=== PATIENT | male | born 1960 | race Caucasian/White ===

== ENCOUNTER 2016-07-18 08:44 | Inpatient (IN) | payer OTHER ==
[2016-07-18] VITALS (10 sets, daily range): BP systolic 92–137; BP diastolic 56–77
[~2016-07-18] VITALS: Ht 182.9 cm; Wt 83.9 kg
[2016-07-18] MEDS ORDERED: FLUO20CA16 PO (08:58)
[2016-07-18] MEDS ORDERED: IV NORMAL SALINE 1000ML BAG 1,000 ML IV SCH (09:08)
[2016-07-18] MEDS ORDERED: IOHEXOL 240 MG/ML 50ML VIAL. PO ONE (09:15)
[2016-07-18] MEDS ORDERED: IOHEXOL 300 MG/ML 75 ML VIAL IV ONE (09:15)
--- NOTE | 2016-07-18 09:29 | PHYS DOC ---
Past Medical History Past Medical History: Hypertension Past Surgical History: No Surgical History Alcohol Use: None Drug Use: None Adult General Chief Complaint Chief Complaint: ABDOMINAL PAIN HPI HPI Patient is a 55 year old male who complains of right-sided abdominal pain going on for 4 or 5 days. Patient says when it started about 4 or 5 days ago, it felt like a gas pain, he felt bloated. He was passing gas which would briefly make it feel a little better. He has had regular bowel movements during this time, no blood or mucus. He does not feel constipated. His pain has been only on the right side of his abdomen for about the last day. It's poorly described, "it's just there". It did keep him up off and on last night. His appetite during this time has been okay. He's had no vomiting. Patient has no history of abdominal surgery. No history of diverticulitis, Crohn 's, etc. He has not had a colonoscopy. No family history of inflammatory bowel disease. PCP Dr. kennedy. He takes medication daily for blood pressure, cannot recall what it is, and also takes a low dose of Prozac every morning. Review of Systems Review of Systems Constitutional: Denies fever or chills [] Eyes: Denies change in visual acuity, redness, or eye pain [] HENT: Denies nasal congestion or sore throat [] Respiratory: Denies cough or shortness of breath [] Cardiovascular: Denies chest pain GI: As in history of present illness : Denies dysuria or hematuria [] Musculoskeletal: Denies back pain or joint pain [] Integument: Denies rash or skin lesions [] Neurologic: Denies headache, focal weakness or sensory changes [] Current Medications Current Medications Current Medications Medications (Trade) Dose Ordered Sig/Daniel Start Time Stop Time Status Last Admin Dose Admin Fentanyl Citrate (Fentanyl 2ml Vial) 50 mcg PRN Q15MIN PRN 07/18/16 09:30 07/19/16 09:29 07/18/16 12:08 50 MCG Info (Do NOT chart on this entry -- for MONITORING) 1 each PRN DAILY PRN 07/18/16 09:30 07/20/16 09:29 Iohexol (Omnipaque 240 Mg/ml) 30 ml 1X ONCE 07/18/16 09:15 07/18/16 09:18 DC Iohexol (Omnipaque 300 Mg/ml) 75 ml 1X ONCE 07/18/16 09:15 07/18/16 09:18 DC 07/18/16 10:34 75 ML Sodium Chloride (Iv Sodium Chloride 0.9% 1000ml Bag) 1,000 ml @ 1,000 mls/hr Q1H 07/18/16 09:08 07/18/16 10:07 DC 07/18/16 09:26 1,000 MLS/HR Allergies Allergies Allergies Coded Allergies Type Severity Reaction Last Updated Verified No Known Drug Allergies 07/18/16 No Physical Exam Physical Exam Constitutional: Well developed, well nourished, no acute distress, non-toxic appearance. Alert, mentating normally. Heart rate 102 HENT: Normocephalic, atraumatic, bilateral external ears normal, nose normal. [ ] Eyes: conjunctiva normal, no discharge. [] Neck: Normal range of motion, no stridor. [] Cardiovascular:Heart rate regular rhythm, no murmur [] Lungs & Thorax: Bilateral breath sounds clear to auscultation [] Abdomen: Bowel sounds quiet, soft, nondistended, no bruit, no masses, no pulsatile masses. No right upper quadrant tenderness. Negative Estrada's. Liver not palpable. Right side of the abdomen is tender to the right of the umbilicus and lower. Moderate tenderness. No significant guarding. Skin: Warm, dry, no erythema, no rash. [] Extremities: No tenderness, no cyanosis, no clubbing, ROM intact, no edema. [] Neurologic: Alert and oriented X 3, normal motor function, normal sensory function, no focal deficits noted. [] Current Patient Data Vital Signs Vital Signs Date Time Temp Pulse Resp B/P Pulse Ox O2 Delivery O2 Flow Rate FiO2 07/18/16 11:29 88 18 113/71 96 Room Air 07/18/16 08:58 100.6 100.6 Lab Values Laboratory Tests Test 07/18/16 08:52 07/18/16 09:00 Urine Collection Type Unknown Urine Color Radha Urine Clarity Clear Urine pH 8.0 Urine Specific [place] 1.025 Urine Protein 100mg/dL (NEG-TRACE) Urine Glucose (UA) Negativemg/dL (NEG) Urine Ketones (Stick) Negativemg/dL (NEG) Urine Blood Large (NEG) Urine Nitrite Negative (NEG) Urine Bilirubin Small (NEG) Urine Urobilinogen Dipstick 1.0mg/dL (0.2 mg/dL) Urine Leukocyte Esterase Small (NEG) Urine RBC 11-20/HPF (0-2) Urine WBC Occ/HPF (0-4) Urine Bacteria 0/HPF (0-FEW) White Blood Count 12.0x10^3/uL (4.0-11.0) H Red Blood Count 4.79x10^6/uL (4.30-5.70) Hemoglobin 14.4g/dL (13.0-17.5) Hematocrit 42.7% (39.0-53.0) Mean Corpuscular Volume 89fL (79-100) Mean Corpuscular Hemoglobin 30pg (25-35) Mean Corpuscular Hemoglobin Concent 34g/dL (31-37) Red Cell Distribution Width 12.9% (11.5-14.5) Platelet Count 173x10^3/uL (140-400) Neutrophils (%) (Auto) 87% (31-73) H Lymphocytes (%) (Auto) 5% (24-48) L Monocytes (%) (Auto) 8% (0-9) Eosinophils (%) (Auto) 0% (0-3) Basophils (%) (Auto) 0% (0-3) Neutrophils # (Auto) 10.4x10^3uL (1.8-7.7) H Lymphocytes # (Auto) 0.6x10^3/uL (1.0-4.8) L Monocytes # (Auto) 1.0x10^3/uL (0.0-1.1) Eosinophils # (Auto) 0.0x10^3/uL (0.0-0.7) Basophils # (Auto) 0.0x10^3/uL (0.0-0.2) Segmented Neutrophils % 87% (35-66) H Band Neutrophils % 5% (0-9) Lymphocytes % 6% (24-48) L Monocytes % 2% (0-10) Platelet Estimate Adequate (ADEQUATE) Sodium Level 136mmol/L (136-145) Potassium Level 4.1mmol/L (3.5-5.1) Chloride Level 100mmol/L (98-107) Carbon Dioxide Level 26mmol/L (21-32) Anion Gap 10 (6-14) Blood Urea Nitrogen 17mg/dL (8-26) Creatinine 1.2mg/dL (0.7-1.3) Estimated GFR (Cockcroft-Gault) 62.4 BUN/Creatinine Ratio 14 (6-20) Glucose Level 132mg/dL (70-99) H Calcium Level 8.9mg/dL (8.5-10.1) Total Bilirubin 0.9mg/dL (0.2-1.0) Aspartate Amino Transferase (AST) 16U/L (15-37) Alanine Aminotransferase (ALT) 24U/L (16-63) Alkaline Phosphatase 52U/L (46-116) Total Protein 7.6g/dL (6.4-8.2) Albumin 3.8g/dL (3.4-5.0) Albumin/Globulin Ratio 1.0 (1.0-1.7) Lipase 96U/L (73-393) Laboratory Tests 07/18/16 09:00 Laboratory Tests 07/18/16 09:00 EKG EKG [] Radiology/Procedures Radiology/Procedures [] Course & Med Decision Making Course & Med Decision Making Pertinent Labs and Imaging studies reviewed. (See chart for details) 55-year-old male with no history of GI or abdominal problems presents with 4-5 day history of abdominal pain which was more generalized and has localized to the right side, slightly higher than the right lower quadrant. I advised him we will give him some pain medications, IV fluids, check labs and a CT scan and he is agreeable to that plan. Microscopic hematuria. Urinalysis shows RBCs and positive for blood. CT scan read by the radiologist positive for acute appendicitis. I discussed the case with Dr. Macdonald, general surgery, who will see the patient and plan to take him to the operating room. We discussed IV antibiotics and I wrote for a dose of Zosyn. I discussed the case with Dr. Alex Rob, taking calls for Dr. Alaniz, and he will admit the patient. I wrote bridge orders. I discussed the diagnosis and plan with the patient and his and the patient understands and agrees. [] Dragon Disclaimer Dragon Disclaimer This electronic medical record was generated, in whole or in part, using a voice recognition dictation system. Departure Departure Impression: Primary Impression: Acute appendicitis Disposition: 09 ADMITTED INPATIENT Admitting Physician: Alex Rob Condition: STABLE Referrals: NATHAN ALANIZ MD (PCP) ERNST IVAN MD Jul 18, 2016 09:29
[2016-07-18 09:30] LABS: CALCIUM 8.9 mg/dL (8.5-10.1); CREATININE 1.2 mg/dL (0.7-1.3); GFR 62.4; POTASSIUM 4.1 mmol/L (3.5-5.1)
[2016-07-18] MEDS ORDERED: CONTRAST GIVEN MC PRN (09:30)
[2016-07-18 09:36] LABS: ALBUMIN 3.8 g/dL (3.4-5.0); TOTAL BILIRUBIN 0.9 mg/dL (0.2-1.0); TOTAL PROTEIN 7.6 g/dL (6.4-8.2)
[2016-07-18 09:40] LABS: BASO % 0 % (0-3); EOS % 0 % (0-3); HEMATOCRIT 42.7 % (39.0-53.0); HEMOGLOBIN 14.4 g/dL (13.0-17.5); LYMPH # 0.6 x10^3/uL (1.0-4.8); LYMPH % 5 % (24-48); MEAN CORPUSCULAR HEMOGLOBIN 30 pg (25-35); MEAN CORPUSCULAR HGB CONC 34 g/dL (31-37); MEAN CORPUSCULAR VOLUME 89 fL (79-100); MONO % 8 % (0-9); NEUT % 87 % (31-73); PLATELET COUNT 173 x10^3/uL (140-400); RED BLOOD COUNT 4.79 x10^6/uL (4.30-5.70); RED CELL DISTRIBUTION WIDTH 12.9 % (11.5-14.5)
[2016-07-18] MEDS: FENTANYL PF 100 MCG/2 ML VIAL. IV PRN ×5 (09:46→13:42)
[2016-07-18 09:54] LABS: BILIRUBIN,URINE SMALL (NEG); GLUCOSE,URINE NEGATIVE (NEG); NITRITE,URINE NEGATIVE (NEG); PROTEIN,URINE 100 mg/dL (NEG-TRACE)
[2016-07-18 10:11] LABS: BACTERIA,URINE 0 /HPF (0-FEW); WBC,URINE OCC /HPF (0-4)
--- NOTE | 2016-07-18 11:31 | RAD ---
Indication right-sided abdominal pain. Axial images through the abdomen and pelvis were obtained. Both oral and IV contrast were administered. 75 cc of Omnipaque 300 was administered intravenously. No prior imaging of the abdomen or pelvis is available. The lung bases are clear. The liver and spleen appear unremarkable. The gallbladder appears grossly normal. The pancreas adrenal glands and kidneys appear normal. A mass inflammatory process or acute finding in the abdomen is not seen. The appendix is enlarged. There is periappendiceal stranding. Findings are consistent with appendicitis. No eva rupture or abscess is seen. There is some thickening of the terminal ileum which is probably secondary to the inflammatory changes in the appendix. No additional finding is seen in the pelvis IMPRESSION: Inflammatory changes in the right lower quadrant compatible with appendicitis. Thickening in the adjacent terminal ileum is probably secondary to the inflammatory changes in the appendix PQRS Compliance Statement: One or more of the following individualized dose reduction techniques were utilized for this examination: 1. Automated exposure control 2. Adjustment of the mA and/or kV according to patient size 3. Use of iterative reconstruction technique
[2016-07-18] MEDS ORDERED: PIPERACILLIN/TAZOBACTAM 3.375 GM in IV NORMAL SALINE 50ML 50 ML IV ONE (12:00)
[2016-07-18 12:13] LABS: PLT ESTIMATE ADEQUATE (ADEQUATE)
--- NOTE | 2016-07-18 13:06 | ACF ---
Admission Forms Criteria ABDOMINAL PAIN Clinical Indications for Admission to Inpatient Care (Place 'X' for any and all applicable criteria): Admission is indicated for ANY ONE of the following(1)(2)(3)(4)(5): [X]I. Inpatient admission required rather than observation care (Also use Abdominal Pain: Observation Care, as appropriate) because of ANY ONE of the following: [ ]a) Severe pain requiring acute inpatient management [X]b) Identification of etiology/finding that requires inpatient care (eg, aortic dissection, free air) [ ]c) Absent bowel sounds with complete ileus(6) [ ]d) Suspected toxic megacolon [ ]e) Severe electrolyte abnormalities requiring inpatient care [ ]f) High fever or infection requiring inpatient admission as indicated by ANY ONE of following(7)(8): [ ] i) Appropriate outpatient or observational care antimicrobial treatment unavailable, not effective, or not feasible [ ] ii) Documented bacteremia [ ] iii) Temperature > 104.9 degrees F (oral) [ ] iv) T >103.1 F (oral) or < 96.8 F(rectal) that does not respond to all emergency treatment measures [ ]g) Signs of intestinal obstruction [B] [ ]h) Hemodynamic instability [ ]i) IV fluid to replace significant ongoing losses (greater than 3 L/m2 per day) (12)(13) [ ]j) Percutaneous or open drainage (eg, abscess, biliary tract ) procedures [ ]k) Parenteral nutrition regimen that must be implemented on inpatient basis [ ]l) Other condition,treatment or monitoring requiring inpatient admission. [ ]II. Peritoneal signs present [ ]III. Surgery needed that cannot be performed on an ambulatory basis. [ ]IV. Evaluation requires patient to not eat or drink for extended period ( eg, more than 24 hours). [ ]V. Contraindications and/or Inappropriate clinical situations for Observational Care in patients with abdominal pain, when ANY ONE of the following is required: [ ]a) Thorough evaluation is required to prevent catastrophic events due to delays in diagnosing (e.g.Mesenteric ischemia) 1,3 [ ]b) Patient with severe pathology or with chronic symptoms unlikely to improve in the ED stay (3) [ ]. General contraindications and/or Inappropriate clinical situations for Observational Care in patients with abdominal pain, when ANY ONE of the following is required: [ ]a) Prediction of prolongation of LOS based on ANY ONE of the following may be considered as a contraindication for observational care 2, 3, 4, 5, 6, 7, 8, 9, 10, 11 [ ]i) Age > 65 yrs. [ ]ii) Patient arriving by ambulance [ ]iii) Patient with high acuity [ ]iv) Patient requiring vital sign monitoring [ ]v) Patient on IV medication [ ]b) Systolic blood pressures 180mmHg 3,12 [ ]c) Patient with altered mental status including delirium and other alteration of consciousness, (3) [ ]d) Patient whose discharge disposition will be to a custodial home or rehabilitation home should not be managed in Emergency Department Observation Unit. CMS rule requires 3 days hospital stay before such placement.3,13 [ ]e) Patient with failure to thrive due to broad array of etiologies 3,16,17 [ ]f) Inability to ambulate 3,14 Extended stay beyond goal length of stay may be needed for(2)(3): [ ]a) Persistent abdominal pain with suspected intra-abdominal process [ ]b) Diagnosed condition requiring continued stay (e.g., pancreatitis, complicated diverticulitis) [ ]c) Surgery (e.g., colectomy) The original [facility] content created by [employer] has been revised. The portions of the content which have been revised are identified through the use of italic text or in bold, and [facility] has neither reviewed nor approved the modified material.All other unmodified content is copyright [employer]. Please see references footnoted in the original [facility] edition 2016 Admission Criteria Met?: Yes CECILIA VELASQUEZ Jul 18, 2016 13:06
--- NOTE | 2016-07-18 13:15 | PDOC2 ---
CONSULT Date of Consult Date of Consult DATE: 07/18/16 TIME: 13:14 Current Problem List Problem List Problems Medical Problems: (1) Acute appendicitis Status: Acute Current Medications Current Medications Current Medications Sodium Chloride (Iv Sodium Chloride 0.9% 1000ml Bag) 1,000 ml @ 1,000 mls/hr Q1H IV Last administered on 07/18/16 09:26; Start 07/18/16 at 09:08; Stop at 10:07; Status DC Iohexol (Omnipaque 240 Mg/ml) 30 ml 1X ONCE PO ; Start 07/18/16 at 09:15; Stop 07/18/16 at 09:18; Status DC Iohexol (Omnipaque 300 Mg/ml) 75 ml 1X ONCE IV Last administered on 07/18/16 10:34; Start 07/18/16 at 09:15; Stop 07/18/16 at 09:18; Status DC Info (Do NOT chart on this entry -- for MONITORING) 1 each PRN DAILY PRN MC SEE COMMENTS; Start 07/18/16 at 09:30; Stop 07/20/16 at 09:29 Fentanyl Citrate 50 mcg 50 mcg PRN Q15MIN PRN IV PAIN GREATER THAN 3/10 Last administered on 07/18/16 12:08; Start 07/18/16 at 09:30; Stop 07/19/16 at 09:29 Piperacillin Sod/ Tazobactam Sod/ Sodium Chloride (Zosyn/Iv Sodium Chloride 0.9 % 50ml) 50 ml @ 100 mls/hr 1X ONCE IV Last administered on 07/18/16 12:14; Start 07/18/16 at 12:00; Stop 07/18/16 at 12:29; Status DC Active Scripts Active Reported Prozac (Fluoxetine Hcl) 20 Mg Capsule 1 Cap PO [id number] Allergies Allergies: Coded Allergies: No Known Drug Allergies (Unverified , 07/18/16) Vitals VITALS Vital Signs Date Time Temp Pulse Resp B/P Pulse Ox O2 Delivery O2 Flow Rate FiO2 07/18/16 12:34 101.7 101.7 07/18/16 12:12 85 18 113/71 99 Room Air Labs Labs Laboratory Tests Test 07/18/16 08:52 07/18/16 09:00 Urine Collection Type Unknown Urine Color Radha Urine Clarity Clear Urine pH 8.0 Urine Specific [place] 1.025 Urine Protein 100mg/dL (NEG-TRACE) Urine Glucose (UA) Negativemg/dL (NEG) Urine Ketones (Stick) Negativemg/dL (NEG) Urine Blood Large (NEG) Urine Nitrite Negative (NEG) Urine Bilirubin Small (NEG) Urine Urobilinogen Dipstick 1.0mg/dL (0.2 mg/dL) Urine Leukocyte Esterase Small (NEG) Urine RBC 11-20/HPF (0-2) Urine WBC Occ/HPF (0-4) Urine Bacteria 0/HPF (0-FEW) White Blood Count 12.0x10^3/uL (4.0-11.0) Red Blood Count 4.79x10^6/uL (4.30-5.70) Hemoglobin 14.4g/dL (13.0-17.5) Hematocrit 42.7% (39.0-53.0) Mean Corpuscular Volume 89fL (79-100) Mean Corpuscular Hemoglobin 30pg (25-35) Mean Corpuscular Hemoglobin Concent 34g/dL (31-37) Red Cell Distribution Width 12.9% (11.5-14.5) Platelet Count 173x10^3/uL (140-400) Neutrophils (%) (Auto) 87% (31-73) Lymphocytes (%) (Auto) 5% (24-48) Monocytes (%) (Auto) 8% (0-9) Eosinophils (%) (Auto) 0% (0-3) Basophils (%) (Auto) 0% (0-3) Neutrophils # (Auto) 10.4x10^3uL (1.8-7.7) Lymphocytes # (Auto) 0.6x10^3/uL (1.0-4.8) Monocytes # (Auto) 1.0x10^3/uL (0.0-1.1) Eosinophils # (Auto) 0.0x10^3/uL (0.0-0.7) Basophils # (Auto) 0.0x10^3/uL (0.0-0.2) Segmented Neutrophils % 87% (35-66) Band Neutrophils % 5% (0-9) Lymphocytes % 6% (24-48) Monocytes % 2% (0-10) Platelet Estimate Adequate (ADEQUATE) Sodium Level 136mmol/L (136-145) Potassium Level 4.1mmol/L (3.5-5.1) Chloride Level 100mmol/L (98-107) Carbon Dioxide Level 26mmol/L (21-32) Anion Gap 10 (6-14) Blood Urea Nitrogen 17mg/dL (8-26) Creatinine 1.2mg/dL (0.7-1.3) Estimated GFR (Cockcroft-Gault) 62.4 BUN/Creatinine Ratio 14 (6-20) Glucose Level 132mg/dL (70-99) Calcium Level 8.9mg/dL (8.5-10.1) Total Bilirubin 0.9mg/dL (0.2-1.0) Aspartate Amino Transf (AST/SGOT) 16U/L (15-37) Alanine Aminotransferase (ALT/SGPT) 24U/L (16-63) Alkaline Phosphatase 52U/L (46-116) Total Protein 7.6g/dL (6.4-8.2) Albumin 3.8g/dL (3.4-5.0) Albumin/Globulin Ratio 1.0 (1.0-1.7) Lipase 96U/L (73-393) Laboratory Tests Test 07/18/16 08:52 07/18/16 09:00 Urine Collection Type Unknown Urine Color Radha Urine Clarity Clear Urine pH 8.0 Urine Specific [place] 1.025 Urine Protein 100mg/dL (NEG-TRACE) Urine Glucose (UA) Negativemg/dL (NEG) Urine Ketones (Stick) Negativemg/dL (NEG) Urine Blood Large (NEG) Urine Nitrite Negative (NEG) Urine Bilirubin Small (NEG) Urine Urobilinogen Dipstick 1.0mg/dL (0.2 mg/dL) Urine Leukocyte Esterase Small (NEG) Urine RBC 11-20/HPF (0-2) Urine WBC Occ/HPF (0-4) Urine Bacteria 0/HPF (0-FEW) White Blood Count 12.0x10^3/uL (4.0-11.0) Red Blood Count 4.79x10^6/uL (4.30-5.70) Hemoglobin 14.4g/dL (13.0-17.5) Hematocrit 42.7% (39.0-53.0) Mean Corpuscular Volume 89fL (79-100) Mean Corpuscular Hemoglobin 30pg (25-35) Mean Corpuscular Hemoglobin Concent 34g/dL (31-37) Red Cell Distribution Width 12.9% (11.5-14.5) Platelet Count 173x10^3/uL (140-400) Neutrophils (%) (Auto) 87% (31-73) Lymphocytes (%) (Auto) 5% (24-48) Monocytes (%) (Auto) 8% (0-9) Eosinophils (%) (Auto) 0% (0-3) Basophils (%) (Auto) 0% (0-3) Neutrophils # (Auto) 10.4x10^3uL (1.8-7.7) Lymphocytes # (Auto) 0.6x10^3/uL (1.0-4.8) Monocytes # (Auto) 1.0x10^3/uL (0.0-1.1) Eosinophils # (Auto) 0.0x10^3/uL (0.0-0.7) Basophils # (Auto) 0.0x10^3/uL (0.0-0.2) Segmented Neutrophils % 87% (35-66) Band Neutrophils % 5% (0-9) Lymphocytes % 6% (24-48) Monocytes % 2% (0-10) Platelet Estimate Adequate (ADEQUATE) Sodium Level 136mmol/L (136-145) Potassium Level 4.1mmol/L (3.5-5.1) Chloride Level 100mmol/L (98-107) Carbon Dioxide Level 26mmol/L (21-32) Anion Gap 10 (6-14) Blood Urea Nitrogen 17mg/dL (8-26) Creatinine 1.2mg/dL (0.7-1.3) Estimated GFR (Cockcroft-Gault) 62.4 BUN/Creatinine Ratio 14 (6-20) Glucose Level 132mg/dL (70-99) Calcium Level 8.9mg/dL (8.5-10.1) Total Bilirubin 0.9mg/dL (0.2-1.0) Aspartate Amino Transf (AST/SGOT) 16U/L (15-37) Alanine Aminotransferase (ALT/SGPT) 24U/L (16-63) Alkaline Phosphatase 52U/L (46-116) Total Protein 7.6g/dL (6.4-8.2) Albumin 3.8g/dL (3.4-5.0) Albumin/Globulin Ratio 1.0 (1.0-1.7) Lipase 96U/L (73-393) Assessment/Plan Assessment/Plan FND Wk # [id number] IMP: acute appendicitis Plan: l/s appendectomy R/B/A explained to pt and his . He will proceed Thanks for consult CORNELIA GONZALEZ MD Jul 18, 2016 13:15
[2016-07-18] MEDS ORDERED: METRONIDAZOLE 500mg PREMIX 100 ML IV PRN (13:30)
[2016-07-18] MEDS ORDERED: ACETAMINOPHEN INTRAVENOUS 100 ML IV ONE ×2 (13:31→13:45)
[2016-07-18] MEDS: IV RINGERS,LACTATED 1000ML 1,000 ML IV SCH ×2 (13:36→13:43)
[2016-07-18] MEDS ORDERED: LIDOCAINE 1% 1 ML SYRINGE. ID PRN (13:45)
[2016-07-18] MEDS ORDERED: FENTANYL PF 100 MCG/2 ML VIAL. IV PRN ×2 (13:45)
[2016-07-18] MEDS ORDERED: MORPHINE SULFATE 2 MG/ML DISP.SYRIN. IV PRN (13:45)
[2016-07-18] MEDS ORDERED: HYDROMORPHONE 2 MG/ML VIAL. IV PRN ×2 (13:45→15:45)
[2016-07-18] MEDS ORDERED: ONDANSETRON PF 4 MG/2 ML VIAL. IV PRN ×2 (13:45→15:45)
[2016-07-18] MEDS ORDERED: PROCHLORPERAZINE 10 MG/2 ML VIAL. IV PRN (13:45)
[2016-07-18] MEDS ORDERED: GLYCOPYRROLATE 1 MG/5 ML VIAL. ONE (13:56)
[2016-07-18] MEDS ORDERED: FENTANYL PF 100 MCG/2 ML VIAL. ONE (13:56)
[2016-07-18] MEDS ORDERED: MIDAZOLAM HCL 2 MG/2 ML VIAL. ONE (13:56)
[2016-07-18] MEDS ORDERED: NEOSTIGMINE METHYLSULFATE 5 MG/5 ML SYRINGE. ONE (13:56)
[2016-07-18] MEDS ORDERED: DESFLURANE > 120 MINUTES IH ONE (13:56)
[2016-07-18] MEDS ORDERED: PROPOFOL 20 ML IV ONE (13:57)
[2016-07-18] MEDS ORDERED: DEXAMETHASONE SOD PHOS 20 MG/5 ML VIAL. ONE (13:57)
[2016-07-18] MEDS ORDERED: LIDOCAINE 2% 100 MG/5 ML DISP.SYRIN. ONE (13:57)
[2016-07-18] MEDS ORDERED: ONDANSETRON PF 4 MG/2 ML VIAL. ONE (13:57)
[2016-07-18] MEDS ORDERED: SUCCINYLCHOLINE 200 MG/10 ML VIAL. ONE (13:57)
[2016-07-18] MEDS ORDERED: ROCURONIUM 100 MG/10 ML VIAL. ONE (13:57)
[2016-07-18] MEDS ORDERED: KETOROLAC 60 MG/2 ML INJ FOR OR. ONE (13:57)
[2016-07-18] MEDS ORDERED: BUPIVAC MPF-EPI 0.5%-1:200000 30 ML VIAL. ONE (14:14)
[2016-07-18] MEDS ORDERED: OXYCODONE/APAP 5/325 TABLET. PO PRN (15:45)
[2016-07-18] MEDS ORDERED: DIPHENHYDRAMINE HCL 25 MG CAPSULE PO PRN (15:45)
[2016-07-18] MEDS ORDERED: DIPHENHYDRAMINE 50 MG/ML VIAL IV PRN (15:45)
[2016-07-18] MEDS ORDERED: ACETAMINOPHEN 500 MG TABLET PO PRN (15:45)
[2016-07-18] MEDS ORDERED: 0.9 % SODIUM CHLORIDE 10 ML DISP.SYRIN. IV PRN (15:45)
--- NOTE | 2016-07-18 15:45 | PDOC ---
BRIEF OPERATIVE NOTE Date: Jul 18, 2016 Pre-Op Diagnosis acute appendicitis Post-Op Diagnosis same Procedure Performed l/s appendectomy Surgeon Torres Anesthesia Type: General Blood Loss 20cc IV Fluid 600cc Urine Output 225cc Specimens Obtained appendix Findings acute suppurative appendix Complications none Additional Remarks # [id number] CORNELIA GONZALEZ MD Jul 18, 2016 15:45
[2016-07-18] MEDS ORDERED: ENOXAPARIN 40 MG/0.4 ML SYRINGE. SQ SCH (16:00)
--- NOTE | 2016-07-18 16:16 | OP ---
DATE OF SURGERY: 07/18/2016 PREOPERATIVE DIAGNOSIS: Acute appendicitis. POSTOPERATIVE DIAGNOSIS: Acute appendicitis. PROCEDURE: Laparoscopic appendectomy. SURGEON: Ankush Gonzalez MD. ANESTHESIA: General endotracheal. ESTIMATED BLOOD LOSS: 20 mL. INTRAVENOUS FLUIDS: 600. URINE OUTPUT: 225. INDICATIONS: The patient is a 55-year-old who has not felt well for a week, got worse today, he came in and the CT is consistent with appendicitis. OPERATIVE FINDINGS: He had an acute suppurative appendicitis with possible perforation as a small appendicolith was identified. Visual inspection of the remainder of the abdomen failed to reveal obvious abnormalities. DESCRIPTION OF PROCEDURE: The patient was brought to the operating suite, given a general endotracheal anesthetic. Ajquez catheter placed to dependent drainage and the abdomen prepped and draped in usual sterile fashion. A supraumbilical incision was made and a 5 mm Visiport used to gain access into the abdominal cavity, taking care to avoid injury to abdominal contents. Pneumoperitoneum established. Camera inserted and inspection carried out with results as noted above. Under direct vision, the suprapubic and left lower quadrant ports were placed. The supraumbilical port was converted to 12 mm for instrumentation. The base of the appendix, which was viable was identified, encircled and an Endo-KATARZYNA stapler with a tissue load used to amputate the base of the appendix. A single medium large clip was used to augment the end of the staple line. We then set about freeing the inflamed gangrenous appendix in its entirety. This allowed transection of the mesoappendix with a vascular load of the Endo-KATARZYNA. Appendix placed in an EndoCatch bag. Again, medium large clips were used along the staple line of the mesoappendix to secure good hemostasis, which was present. Intra-abdominal pressure decreased to 6 cm of water. No bleeding from the appendiceal stump or from the mesoappendix was seen. A stab wound was made in the right flank and under direct vision, a 19-[place] round [place] drain was placed along the pericolic gutter into the tube pelvis for postoperative drainage. Drainage secured to the skin with a silk stitch. Table returned to level. Appendix delivered through the supraumbilical incision. Incision closed with an interrupted 0 Vicryl suture. Again, at 6 cm of water, no bleeding from the supraumbilical incision closure or from the left lower quadrant port site after its removal or from the drain site. Abdomen decompressed, camera slowly removed, no bleeding seen. Skin incisions closed with subcuticular 4-0 Monocryl. Steri-Strips and sterile dressings applied. Jaquez catheter removed. The patient was awakened from his anesthetic and taken to the recovery room in satisfactory condition. ANKUSH GONZALEZ MD DR: KAPIL/dodie JOB#: [id number] / [id number]
[2016-07-18] MEDS: POTASSIUM CL 20MEQ-0.45% NACL 1,000 ML IV SCH (17:43)
[2016-07-18] MEDS: PIPERACILLIN/TAZOBACTAM 3.375 GM in IV NORMAL SALINE 50ML 50 ML IV SCH ×2 (17:44→23:51)
[2016-07-18] MEDS: OXYCODONE/APAP 5/325 TABLET. PO PRN (19:30)
[2016-07-18] MEDS: ALPRAZOLAM 0.5 MG TABLET. PO PRN (19:33)
[2016-07-18] MEDS: DOCUSATE SODIUM 100 MG CAPSULE. PO SCH (21:46)
[2016-07-19 03:05] VITALS: BP 122/78
--- NOTE | 2016-07-19 04:29 | CONS ---
DATE OF CONSULTATION: 07/18/2016 HISTORY OF PRESENT ILLNESS: The patient is a 55-year-old who for the last week or so has had some right-sided abdominal pain. It got much worse yesterday. He presented to the ED where a CT scan is consistent with appendicitis. He is brought for appendectomy. PAST SURGICAL HISTORY: Not significant. PAST MEDICAL HISTORY: He has some hypertension, treated by his primary physician. ALLERGIES: No known drug allergies. ROUTINE MEDICATIONS: Low dose of Prozac and a blood pressure medication. FAMILY HISTORY: Noncontributory to this illness. SOCIAL HISTORY: He is a nonsmoker who does not use alcohol routinely. REVIEW OF SYSTEMS: GENERAL: Denies fevers or chills. HEENT: No recent congestion or sore throat. CARDIAC: No chest pain or palpitations. RESPIRATORY: No cough or wheezing. GASTROINTESTINAL: See history of present illness. GENITOURINARY: No increased frequency or dysuria. NEUROLOGIC: Denies headaches or visual changes. PHYSICAL EXAMINATION: SKIN: Reveals a well-developed, well-nourished male who is uncomfortable due to abdominal pain. He is alert and oriented. VITAL SIGNS: His temperature is 101.7, heart rate 85, blood pressure 113/71. HEENT: Normocephalic. EOMs intact. NECK: Supple, without carotid bruits. LUNGS: Clear. HEART: Regular rate and rhythm. ABDOMEN: The belly is soft. There is diffuse tenderness to palpation worst in the right hypochondriac location. GENITAL AND RECTAL: Deferred. EXTREMITIES: Showed no gross skeletal abnormalities. NEUROLOGIC: He is grossly intact. ADMISSION LABORATORY DATA: Shows a white count of 12,000, hemoglobin 14.4, chemistries are unremarkable, sugar of 132. Urinalysis shows a spec gravity of 1.025 with some red cells. CT scan shows inflammatory changes in the right lower quadrant consistent with appendicitis. IMPRESSION: 1. Right lower quadrant abdominal pain acute appendicitis. 2. Dehydration. PLAN: Laparoscopic appendectomy. I discussed the procedure with the patient and his , including risks of bleeding, infection, injury to the bowel, or bladder, possible need for drain postoperatively, and the fact that this may not be an acute appendicitis (i.e., mesenteric adenitis, gastroenteritis, inflammatory bowel disease). He understands and we will proceed. Thank you for asking me to see this gentleman and participate in his care. We will follow him with you during this hospitalization. CORNELIA GONZALEZ MD DR: KAPIL/dodie JOB#: [id number] / [id number]
[2016-07-19 04:48] LABS: BASO % 0 % (0-3); EOS % 0 % (0-3); HEMATOCRIT 35.9 % (39.0-53.0); LYMPH # 0.7 x10^3/uL (1.0-4.8); LYMPH % 5 % (24-48); MEAN CORPUSCULAR HEMOGLOBIN 30 pg (25-35); MEAN CORPUSCULAR HGB CONC 34 g/dL (31-37); MEAN CORPUSCULAR VOLUME 89 fL (79-100); MONO % 9 % (0-9); NEUT % 86 % (31-73); PLATELET COUNT 149 x10^3/uL (140-400); RED BLOOD COUNT 4.05 x10^6/uL (4.30-5.70); RED CELL DISTRIBUTION WIDTH 13.4 % (11.5-14.5); WHITE BLOOD COUNT 14.1 x10^3/uL (4.0-11.0)
[2016-07-19] MEDS: POTASSIUM CL 20MEQ-0.45% NACL 1,000 ML IV SCH (05:04)
[2016-07-19] MEDS ORDERED: ENOXAPARIN 40 MG/0.4 ML SYRINGE. SQ SCH ×2 (05:26→16:00)
[2016-07-19] MEDS ORDERED: HYDROMORPHONE 2 MG/ML VIAL. IV PRN (05:26)
[2016-07-19] MEDS ORDERED: ONDANSETRON PF 4 MG/2 ML VIAL. IV PRN (05:26)
[2016-07-19] MEDS: OXYCODONE/APAP 5/325 TABLET. PO PRN (06:23)
[2016-07-19] MEDS: PIPERACILLIN/TAZOBACTAM 3.375 GM in IV NORMAL SALINE 50ML 50 ML IV SCH (06:24)
[2016-07-19] MEDS: ALPRAZOLAM 0.5 MG TABLET. PO PRN (06:30)
[2016-07-19 07:00] VITALS: BP 89/61
[2016-07-19] MEDS ORDERED: FLUOXETINE HCL 10 MG CAPSULE PO SCH (08:00)
--- NOTE | 2016-07-19 09:05 | PDOC ---
Provider Note Provider Note [id number] JERALD BRANNON MD Jul 19, 2016 09:05
[2016-07-19] MEDS: DOCUSATE SODIUM 100 MG CAPSULE. PO SCH (09:07)
--- NOTE | 2016-07-19 09:50 | HP ---
ADMIT DATE: 07/18/2016 CHIEF COMPLAINT: Appendicitis. HISTORY OF PRESENT ILLNESS: A 55-year-old white male patient of Dr. Dykes who has a history of mild hypertension and OCD. He takes Prozac and lisinopril. He came in with increasing lower quadrant abdominal pain, nausea and vomiting and was found to have acute appendicitis. Dr. Macdonald performed appendectomy for acute suppurative appendix and he is on IV Zosyn at this time with the drain in place. PAST HISTORY: No prior surgery. No known other medical problems. MEDICATIONS: No other medications. ALLERGIES: No known allergies. SOCIAL HISTORY: , nonsmoker, nondrinker, employed. FAMILY HISTORY: Unremarkable. REVIEW OF SYSTEMS: No other complaints. OBJECTIVE: ENT: All within normal limits. NECK: No masses, nodes or bruits. LUNGS: Clear. CARDIOVASCULAR: Regular rate. No tachycardia or murmur. ABDOMEN: Multiple dressings from port sites. Relatively flat and soft. Minimal bowel sounds. Drain in the right mid abdomen. EXTREMITIES: All within normal limits. Good pedal and radial pulses. NEUROLOGIC: Anxious, oriented, nonfocal. Gait not tested. Cranial nerves, motor and sensory appears to be intact. ASSESSMENT: Status post appendicitis and appendectomy. He has a history of obsessive-compulsive disorder, anxiety disorder and hypertension. PLAN: Continue Prozac and p.r.n. Xanax. Antibiotics per Dr. Macdonald. JERALD BRANNON MD DR: COREY/dodie JOB#: [id number] / [id number]
[2016-07-19 11:00] VITALS: BP 108/65
--- NOTE | 2016-07-19 11:57 | PDOC ---
SURGICAL PROGRESS NOTE Subjective anxious to go home no complaints other than pain at the drain site Vital Signs Vital Signs Date Time Temp Pulse Resp B/P Pulse Ox O2 Delivery O2 Flow Rate FiO2 07/19/16 11:00 97.9 62 18 108/65 98 Room Air 97.9 07/18/16 16:17 2 I&O Intake and Output 07/19/16 07:00 Intake Total 2310 ml Output Total 235 ml Balance 2075 ml Intake Oral 360 ml IV Total 1950 ml Output Urine Total 225 ml Estimated Blood Loss 10 ml PATIENT HAS A FRANK: No General: Alert, Oriented X3, Cooperative, No acute distress Abdomen: Soft, Other (small amount of serosanguineous output) Labs Laboratory Tests Test 07/18/16 08:52 07/18/16 09:00 07/19/16 04:30 Urine Collection Type Unknown Urine Color Radha Urine Clarity Clear Urine pH 8.0 Urine Specific [place] 1.025 Urine Protein 100mg/dL (NEG-TRACE) Urine Glucose (UA) Negativemg/dL (NEG) Urine Ketones (Stick) Negativemg/dL (NEG) Urine Blood Large (NEG) Urine Nitrite Negative (NEG) Urine Bilirubin Small (NEG) Urine Urobilinogen Dipstick 1.0mg/dL (0.2 mg/dL) Urine Leukocyte Esterase Small (NEG) Urine RBC 11-20/HPF (0-2) Urine WBC Occ/HPF (0-4) Urine Bacteria 0/HPF (0-FEW) White Blood Count 12.0x10^3/uL (4.0-11.0) 14.1x10^3/uL (4.0-11.0) Red Blood Count 4.79x10^6/uL (4.30-5.70) 4.05x10^6/uL (4.30-5.70) Hemoglobin 14.4g/dL (13.0-17.5) 12.0g/dL (13.0-17.5) Hematocrit 42.7% (39.0-53.0) 35.9% (39.0-53.0) Mean Corpuscular Volume 89fL (79-100) 89fL (79-100) Mean Corpuscular Hemoglobin 30pg (25-35) 30pg (25-35) Mean Corpuscular Hemoglobin Concent 34g/dL (31-37) 34g/dL (31-37) Red Cell Distribution Width 12.9% (11.5-14.5) 13.4% (11.5-14.5) Platelet Count 173x10^3/uL (140-400) 149x10^3/uL (140-400) Neutrophils (%) (Auto) 87% (31-73) 86% (31-73) Lymphocytes (%) (Auto) 5% (24-48) 5% (24-48) Monocytes (%) (Auto) 8% (0-9) 9% (0-9) Eosinophils (%) (Auto) 0% (0-3) 0% (0-3) Basophils (%) (Auto) 0% (0-3) 0% (0-3) Neutrophils # (Auto) 10.4x10^3uL (1.8-7.7) 12.2x10^3uL (1.8-7.7) Lymphocytes # (Auto) 0.6x10^3/uL (1.0-4.8) 0.7x10^3/uL (1.0-4.8) Monocytes # (Auto) 1.0x10^3/uL (0.0-1.1) 1.2x10^3/uL (0.0-1.1) Eosinophils # (Auto) 0.0x10^3/uL (0.0-0.7) 0.0x10^3/uL (0.0-0.7) Basophils # (Auto) 0.0x10^3/uL (0.0-0.2) 0.0x10^3/uL (0.0-0.2) Segmented Neutrophils % 87% (35-66) Band Neutrophils % 5% (0-9) Lymphocytes % 6% (24-48) Monocytes % 2% (0-10) Platelet Estimate Adequate (ADEQUATE) Sodium Level 136mmol/L (136-145) Potassium Level 4.1mmol/L (3.5-5.1) Chloride Level 100mmol/L (98-107) Carbon Dioxide Level 26mmol/L (21-32) Anion Gap 10 (6-14) Blood Urea Nitrogen 17mg/dL (8-26) Creatinine 1.2mg/dL (0.7-1.3) Estimated GFR (Cockcroft-Gault) 62.4 BUN/Creatinine Ratio 14 (6-20) Glucose Level 132mg/dL (70-99) Calcium Level 8.9mg/dL (8.5-10.1) Total Bilirubin 0.9mg/dL (0.2-1.0) Aspartate Amino Transf (AST/SGOT) 16U/L (15-37) Alanine Aminotransferase (ALT/SGPT) 24U/L (16-63) Alkaline Phosphatase 52U/L (46-116) Total Protein 7.6g/dL (6.4-8.2) Albumin 3.8g/dL (3.4-5.0) Albumin/Globulin Ratio 1.0 (1.0-1.7) Lipase 96U/L (73-393) Laboratory Tests Test 07/19/16 04:30 White Blood Count 14.1x10^3/uL (4.0-11.0) Red Blood Count 4.05x10^6/uL (4.30-5.70) Hemoglobin 12.0g/dL (13.0-17.5) Hematocrit 35.9% (39.0-53.0) Mean Corpuscular Volume 89fL (79-100) Mean Corpuscular Hemoglobin 30pg (25-35) Mean Corpuscular Hemoglobin Concent 34g/dL (31-37) Red Cell Distribution Width 13.4% (11.5-14.5) Platelet Count 149x10^3/uL (140-400) Neutrophils (%) (Auto) 86% (31-73) Lymphocytes (%) (Auto) 5% (24-48) Monocytes (%) (Auto) 9% (0-9) Eosinophils (%) (Auto) 0% (0-3) Basophils (%) (Auto) 0% (0-3) Neutrophils # (Auto) 12.2x10^3uL (1.8-7.7) Lymphocytes # (Auto) 0.7x10^3/uL (1.0-4.8) Monocytes # (Auto) 1.2x10^3/uL (0.0-1.1) Eosinophils # (Auto) 0.0x10^3/uL (0.0-0.7) Basophils # (Auto) 0.0x10^3/uL (0.0-0.2) Problem List Problems Medical Problems: (1) Acute appendicitis Status: Acute Assessment/Plan POD 1 l/s appy home today on antibiotics, with drain call Saturday with [facility] output Problems: CORNELIA GONZALEZ MD Jul 19, 2016 11:57
[2016-07-19] MEDS ORDERED: OXYC-323 PO (12:13)
--- NOTE | 2016-07-20 10:14 | DS ---
DATE OF DISCHARGE: 07/19/2016 HOSPITAL SUMMARY: The patient is a 55-year-old white male patient of Dr. Bunch who came in with abdominal pain and CT scan consistent with appendicitis. Dr. Macdonald performed appendectomy for suppurative appendix and he received IV Zosyn postoperatively with the drain in place. Laboratory studies were unremarkable and he was afebrile after surgery and Dr. Macdonald was comfortable to switch him to oral antibiotics and discharge him at that time. FINAL DIAGNOSIS: Acute appendicitis. OPERATIONS AND PROCEDURES: Appendectomy. COMPLICATIONS: None. CONSULTATION: Dr. Macdonald. DISPOSITION: He will take Augmentin 875 twice a day for 5 more days. Follow up with Dr. Macdonald for surgical recovery and pain meds and will see Dr. Bunch on an as needed basis for his other medical problems. JERALD BRANNON MD DR: COREY/dodie JOB#: [id number] / [id number]
--- NOTE | 2016-07-20 14:02 | PATHOLOGY ---
PATHOLOGY REPORT * * * * * * * * FINAL DIAGNOSIS: Appendix, appendectomy: - Acute appendicitis and periappendicitis with focal perforation. (BELEM:; d/t: 07/20/16) REPORT ELECTRONICALLY SIGNED BY: Geetha Guillen M.D. DATE/TIME: 07/20/2016 14:01 * * * * * * * * GROSS PATHOLOGY: Received in formalin labeled "Moni Easley and appendix," is a partially torn and disrupted appendix measuring (upon reconstruction), 4.5 cm in length and 0.8 cm in diameter with a moderate amount of attached mesoappendix. The serosal surface is dull, pink-bernal, hemorrhagic, and displays multiple adhesions and exudate. There is a 0.4 cm in greatest dimension possible perforation located at the distal tip. Sectioning reveals a 0.2 cm in diameter lumen. Gimp Tacker sections are submitted as follows: A1 proximal resection margin and bisected distal tip to include possible perforation A2 sections from body of appendix (TTL; 07/19/2016) INITIAL CPT CODE(S): A; 71332 Professional services performed by [facility] [address] Technical services performed by [facility] at [address] [place] [address]. SPECIMEN(S) RECEIVED: A.Appendix CLINICAL HISTORY: Acute appendicitis PATIENT: MONI EASLEY /AGE: 610/16/1960 (Age: 55) PATIENT #: [id number] ALT CASE #: SPECIMEN COLLECTION DATE: 07/18/2016 SPECIMEN RECEIVED DATE: 07/19/2016 [facility] - [address] [place] [address] - PHONE: [phone] * * * END OF REPORT * * *
== END 2016-07-19 12:45 | disposition home or self-care (01) | DRG 339 ==
LOC: ER 08:44 → 4 NORTH 11:53
PROVIDERS: ADMIT Family Medicine; ATTEND Family Medicine
PROC: 0DTJ4ZZ Resection of Appendix, Percutaneous Endoscopic Approach (ICD-10-PCS; principal; 2016-07-18 14:45)
DX: K35.3 Acute appendicitis with localized peritonitis (principal); R65.10 Systemic inflammatory response syndrome (SIRS) of non-infectious origin without acute organ dysfunction; E86.0 Dehydration; F41.9 Anxiety disorder, unspecified; F42.9 Obsessive-compulsive disorder, unspecified; I10 Essential (primary) hypertension; Z87.19 Personal history of other diseases of the digestive system
CPT/HCPCS: 36415; 74177; 80053; 81001; 83690; 85007; 85027; 87086; 88304; 96361; 96365; C1782; J0131; J0330; J1100; J1885; J2250; J2405; J2543; J2704; J2710; J3010; J3490; J7030; J7120; Q9967; 99285-25